=== PATIENT | male | born 1935 | race Caucasian/White ===

== ENCOUNTER → 2017-02-17 | Outpatient (CLI) | payer OTHER | PROVIDERS: ATTEND Otolaryngology | DX: R13.12 Dysphagia, oropharyngeal phase (principal); C02.8 Malignant neoplasm of overlapping sites of tongue; K44.9 Diaphragmatic hernia without obstruction or gangrene | CPT/HCPCS: 74220; 74230; 92611; G8996; G8997; G8998 ==

== ENCOUNTER → 2017-05-09 | Outpatient (CLI) | payer OTHER | PROVIDERS: ATTEND Podiatrist | DX: R13.10 Dysphagia, unspecified (principal); Z85.810 Personal history of malignant neoplasm of tongue | CPT/HCPCS: 74230; 92611; G8996; G8997; G8998 ==